=== PATIENT | male | born 1940 | race Caucasian/White ===

== ENCOUNTER → 2016-10-19 | Outpatient (CLI) | payer OTHER, MEDICARE ==
[~2016-10-19] MED LIST: ACET-1311 PO; ALFU10TA30 PO; ASPEC325 PO; ATOR-22 PO; OPTIRAY 320 IV PRN
--- NOTE | 2016-10-19 14:39 | DIAGNOSTIC IMAGING REPORT ---
CT OF THE CHEST WITH IV CONTRAST CLINICAL HISTORY: Shortness of breath. Pulmonary hypertension. COMPARISON STUDY: Chest radiograph December 21, 2011. TECHNIQUE: Following IV administration of 93 mL of Optiray-320, helical axial images of the chest were obtained. Images were viewed in the axial, sagittal and coronal planes. IV contrast was administered without complication. CT DOSE: 326.00 mGy.cm FINDINGS: No enlarged axillary, mediastinal or hilar lymph nodes are present. There is moderate dilatation of the central pulmonary arteries. The heart is moderately enlarged. There is no pericardial effusion. There is no evidence of thoracic aortic dissection. No central pulmonary embolus is identified. The remainder of the pulmonary arteries are suboptimally assessed on this examination. The central airways are patent. There is mild to moderate elevation of the right hemidiaphragm. Right lower lobe and right middle lobe opacity suggest atelectasis. Left lower lobe and lingular opacity is suggestive of atelectasis. There is no pneumothorax or pleural effusion. No suspicious osseous lesions are present. There is an old nonunited left clavicular fracture. A right renal cyst is noted. There is geographic fatty infiltration within the right hepatic lobe. A few subcentimeter hypodense hepatic lesions are too small to characterize. IMPRESSION: 1. No acute intrathoracic findings. 2. Moderate dilatation of the central pulmonary arteries suggestive of pulmonary arterial hypertension. 3. Moderate cardiomegaly. 4. Diminished lung volumes with elevation of the right hemidiaphragm. Bilateral lower lobe, right middle lobe and lingular opacities are suggestive atelectasis. No CT evidence of interstitial lung disease. 5. Fatty infiltration of the liver. Electronically signed by: Rajinder New M.D. 10/19/2016 2:36 PM Dictated Date/Time: 10/19/2016 2:28 PM
== END | disposition home or self-care (01) ==
LOC: C.CTS 13:52
PROVIDERS: ATTEND Internal Medicine Cardiovascular Disease
DX: I27.2 Other secondary pulmonary hypertension (principal); R06.02 Shortness of breath; R94.2 Abnormal results of pulmonary function studies; I51.7 Cardiomegaly; K76.0 Fatty (change of) liver, not elsewhere classified

== ENCOUNTER → 2017-10-20 | Outpatient (CLI) | payer OTHER, MEDICARE ==
[~2017-10-20] MED LIST changes: +ALFU10TA2 PO; -ALFU10TA30 PO; -OPTIRAY 320 IV PRN
[2017-10-20 11:21] LABS: BLOOD UREA NITROGEN 20 mg/dl (7-18); CREATININE 0.83 mg/dl (0.60-1.40)
== END | disposition home or self-care (01) ==
LOC: C.LAB 09:38
PROVIDERS: ATTEND Nurse Practitioner Adult Health
DX: R31.9 Hematuria, unspecified (principal)

== ENCOUNTER → 2017-10-23 | Outpatient (CLI) | payer OTHER, MEDICARE ==
[~2017-10-23] MED LIST changes: +OPTIRAY 320 IV PRN
--- NOTE | 2017-10-23 08:27 | DIAGNOSTIC IMAGING REPORT ---
CT UROGRAM CLINICAL HISTORY: Hematuria. COMPARISON STUDY: No priors. TECHNIQUE: Before and following the IV administration of 119 cc of Optiray 320, CT urogram of the abdomen and pelvis is performed from the lung bases to the proximal femora. Images are reviewed in the axial, sagittal, and coronal planes. IV contrast was administered without complication. A dose lowering technique was utilized adhering to the principles of ALARA. CT DOSE: 1513.23 mGycm FINDINGS: Lung bases: The heart is top normal in size and without pericardial effusion. The coronary arteries are densely calcified. The pulmonary trunk is dilated, measuring 4.2 cm in diameter. This suggests pulmonary artery hypertension. Segmental atelectasis is present at both lung bases. No airspace consolidation is seen typical for pneumonia and there is no pleural effusion. There is a tiny hiatal hernia. Liver: The contrast-enhanced liver is normal in size, contour, and attenuation. There is no intrahepatic biliary ductal dilatation. Scattered subcentimeter hepatic hypodensities likely represent cysts but are too small for definitive characterization. The hepatic veins and portal veins are patent. Gallbladder: Unremarkable. Spleen: Normal in size and attenuation. Pancreas: Unremarkable. Adrenal glands: Unremarkable. Kidneys and ureters: The contrast enhanced kidneys demonstrate cortical atrophy and are without hydronephrosis. There are no renal calculi identified on the unenhanced images. The kidneys enhance and excrete symmetrically. A 2.3 cm cyst is noted in the left upper pole. A subcentimeter cortical hypodensity in the lower pole of the left kidney also likely represents a cyst but is too small for definitive characterization. There is no enhancing renal cortical mass lesion identified. There is no evidence of urothelial lesion within the renal pelvis bilaterally or along the course of either ureter. Abdominal vasculature: The abdominal aorta is normal in course and caliber noting moderate atherosclerotic calcification. Bowel: The small bowel and colon are normal in course and caliber. The appendix is well-visualized and normal. Peritoneum: There is no intraperitoneal free air or abdominal ascites. There is a small fat-containing umbilical hernia. Lymphadenopathy: None. Pelvic viscera: The prostate gland is markedly enlarged and heterogeneous, measuring 6 cm in transverse diameter. There is median lobe hypertrophy. The bladder is decompressed and not well evaluated. Circumferential wall thickening an trabeculation suggests chronic bladder outlet obstruction. There is a small fat-containing left inguinal hernia. Skeletal structures: The skeletal structures are osteopenic. Mild lumbosacral spondylosis is observed. No lytic or blastic lesions are seen. There are healed left anterior rib fractures. IMPRESSION: 1. The kidneys demonstrate mild cortical atrophy and are without hydronephrosis. 2. No renal calculi are identified. There is no enhancing renal cortical mass, and no evidence of urothelial lesion involving the renal pelvis bilaterally or the ureters. 3. The prostate gland is markedly enlarged and heterogeneous. Correlation with serum PSA levels is recommended. 4. The bladder was decompressed and not well evaluated. The wall appears circumferentially thickened and trabeculated suggesting chronic outlet obstruction. If further assessment of the bladder is desired then cystoscopy would be appropriate. 5. The pulmonary trunk is dilated suggesting pulmonary artery hypertension. 6. Additional findings as above. Electronically signed by: Arian Mitchell M.D. 10/23/2017 8:26 AM Dictated Date/Time: 10/23/2017 8:15 AM
== END | disposition home or self-care (01) ==
LOC: C.CTS 07:41
PROVIDERS: ATTEND Nurse Practitioner Adult Health
DX: R31.9 Hematuria, unspecified (principal)

== ENCOUNTER → 2018-02-23 | Outpatient (CLI) | payer OTHER, MEDICARE ==
[~2018-02-23] MED LIST changes: -OPTIRAY 320 IV PRN; +REGADENOSON 0.4 MG/5 ML SYR ONE
--- NOTE | 2018-02-23 23:03 | Myocardial Perfusion Study ---
Myocardial Perfusion Study Rpt Myocardial Perfusion Study Rpt Date of Service 02/23/2018 Myocardial Perfusion Study Rpt Procedure: 1. Myocardial perfusion study performed in multiple views/images 2. Lexiscan pharmacologic stress ECG Indications: 1. Abnormal stress test Consent: Informed written consent was obtained prior to the procedure. Ordering physician: Stacey SAWYER Procedural details: For the stress portion of the study, Lexiscan 0.4 mg was intravenously administered followed by a saline flush. This was followed by 31.6 mCi of technetium 99m Cardiolite, injected at 1:12 p.m. on 02/23/2018. 30 minutes following the injection, imaging of the heart was performed in multiple projections. For the rest portion of the study, 10.4 mCi technetium 99m Cardiolite was injected intravenously at 11:30 a.m. on 02/23/2018. 1 hour following the injection, imaging of the heart was performed in the same projections. Lexiscan stress ECG: Resting ECG demonstrated: Sinus bradycardia 45 bpm Maximum heart rate: 75 bpm Resting blood pressure: 160/63 mmHg Maximum blood pressure: 160/63 mmHg Maximal, age-predicted heart rate: 51 % Significant ST changes: None Arrhythmia: None Symptoms: No chest pain reported. Findings: Rotating raw imaging demonstrated no significant lung uptake. There is no significant motion artifact. Heart size appeared normal. Myocardial perfusion demonstrated a large area of mildly reduced uptake involving the base to distal inferoseptal, base to distal inferior, and base to distal inferolateral wall segments which appeared fixed in post stress and rest imaging. There were no significant reversible defects to suggest ischemia. In the setting of normal wall motion, fixed defect likely secondary to attenuation artifact. Ejection fraction: Visually normal left ventricular systolic function, however calculated EF was 27%, which did not appear accurate. Wall motion: Normal No significant transient ischemic dilation. Impression: 1. Negative myocardial perfusion study for ischemia. 2. Fixed defect likely secondary to attenuation artifact given normal wall motion. 3. No chest pain reported. 4. Visually normal left ventricular systolic function and wall motion. 5. Nondiagnostic Lexiscan ECG.
== END | disposition home or self-care (01) ==
LOC: C.NUCL 11:03
PROVIDERS: ATTEND Nurse Practitioner Adult Health
DX: R06.00 Dyspnea, unspecified (principal); I20.0 Unstable angina; R94.39 Abnormal result of other cardiovascular function study

== ENCOUNTER → 2018-05-17 | Outpatient (CLI) | payer OTHER, MEDICARE ==
[~2018-05-17] MED LIST changes: -REGADENOSON 0.4 MG/5 ML SYR ONE
[2018-05-17 14:04] LABS: HEMATOCRIT 42.9 % (42-52); HEMOGLOBIN 13.9 g/dL (14.0-18.0); MEAN CELL VOLUME 87.6 fL (80-100); MEAN CORPUSCULAR HEMOGLOBIN 28.4 pg (25-34); MEAN CORPUSCULAR HGB CONC 32.4 g/dl (32-36); PLATELET COUNT 328 K/uL (130-400); RED CELL DISTRIBUTION WIDTH CV 13.4 % (11.5-14.5); RED CELL DISTRIBUTION WIDTH SD 42.4 fL (36.4-46.3); WHITE BLOOD COUNT 5.66 K/uL (4.8-10.8)
[2018-05-17 14:23] LABS: BLOOD UREA NITROGEN 12 mg/dl (7-18); CALCIUM 8.4 mg/dl (8.5-10.1); CARBON DIOXIDE 27 mmol/L (21-32); CREATININE 0.91 mg/dl (0.60-1.40); GLUCOSE 100 mg/dl (70-99); POTASSIUM 4.1 mmol/L (3.5-5.1); SODIUM 140 mmol/L (136-145)
[2018-05-17 14:24] LABS: PTT PATIENT 25.4 SECONDS (21.0-31.0)
== END | disposition home or self-care (01) ==
LOC: C.LABPBG 08:32
PROVIDERS: ATTEND Urology
DX: R97.20 Elevated prostate specific antigen [PSA] (principal); Z01.818 Encounter for other preprocedural examination

== ENCOUNTER → 2018-06-07 | Day surgery (SDC) | payer OTHER, MEDICARE ==
[~2018-06-07] VITALS: Ht 170.2 cm; Wt 73.0 kg
[2018-06-07] VITALS (10 sets, daily range): BP systolic 121–173; BP diastolic 47–82; PULSE 51–71; TEMP 37.2; O2SAT 95–100; Ht 170.2 cm; Wt 73.0 kg
[~2018-06-07] MED LIST changes: +ACETAMINOPHEN 325 MG TAB PO PRN; +ASPI1CHW12; +CHOL1000 PO; +CYAN100073; +DUTA0.5C PO; +FENTANYL CITRATE INJ 50 MCG/1 ML 2 ML VIAL ONE; +HEPARIN SOD (PORCINE) 1000 UNIT/ML 10 ML VIAL ONE; +MIDAZOLAM HCL 1 MG/ML 2ML VIAL ONE; +NITROGLYCERIN/D5W 100MCG/ML 20ML SYR ONE; +NiCARDipine HCL INJ 2.5 MG/ML 10 ML AMP ONE; +ONDANSETRON INJ 2 MG/ML 2 ML VIAL IV PRN; +SODIUM CHLORIDE 0.9% 1000ML 1,000 ML IV SCH; +SODIUM CHLORIDE 0.9% 1000ML 250 ML IV PRN; +TAMS0.4C38 PO
--- NOTE | 2018-06-07 07:24 | History and Physical ---
History & Physical Date of Service Jun 07, 2018. History & Physical Chief complaint: Here for transesophageal echo and cardiac catheterization as ordered by Dr. Irby, his primary line maintainer section. HPI: Mr. Heller is a pleasant 78-year-old gentleman with a history significant for mitral regurgitation, dyslipidemia, tricuspid regurgitation, restrictive lung disease, pulmonary hypertension, paroxysmal atrial fibrillation. He was referred for transesophageal ECHO cardiac catheterization for recurrent chest discomfort and dyspnea with exertion in the setting of moderate to severe mitral regurgitation which appeared worse on most recent echo. He continues to have chest discomfort which he describes as occurring both at rest and with exertion. He also has a separate dyspnea with exertion that does not necessarily occur with the chest discomfort. He denies shortness of breath at rest or orthopnea. He has not had anything to eat or drink since 7:00 p.m. on 06/06/2018. Review of systems: As above. Past medical history: 1. Mitral regurgitation 2. Tricuspid regurgitation 3. dyslipidemia 4. Restrictive lung disease 5. Pulmonary hypertension 6. Prostate surgery Social history: His has accompanied him today. Exam: Vitals are pending General: No acute distress Neck: No JVD Cardiac: Regular. Normal S1 and S2. 3/6 holosystolic murmur best heard at the apex. Lungs: Clear bilaterally. Abdomen: Nontender. Soft. Extremities: Trace bilateral lower extremity edema. No cyanosis. 2+ radial pulses bilaterally; Bryan's test okay. Labs from 05/09/2018 were reviewed: Hemoglobin 13.9; potassium 4.1; creatinine 0.91; INR 1 Echo 04/12/2018: Normal biventricular systolic function. Mild LVH. Mild biatrial dilation. Mild AI. Possible myxomatous changes of anterior mitral valve leaflet without prolapse. Moderate to severe MR. Mild to moderate TR. Severely elevated RVSP. Nuclear stress 02/23/2018: Negative for ischemia. Normal LV systolic function and wall motion. ASSESSMENT/PLAN: 1.Mitral regurgitation: Reportedly moderate to severe. Transesophageal echo as ordered by Dr. Irby. Risks and benefits were discussed with him in detail. He has given consent to undergo the procedure. 2. Pulmonary hypertension: Right heart catheterization ordered as per Dr. Irby. This will be performed when patient is ready and labs available. 3. Chest pain and dyspnea with exertion: Coronary angiography has been ordered as per Dr. Zoda to further evaluate his ongoing symptoms. Risks and benefits were discussed with him in detail. He is aware that CT surgery is not available at this facility but has given informed written consent to undergo diagnostic coronary angiography and PCI, if deemed appropriate, at this facility. 4. Disposition: Will proceed with testing as noted above.
--- NOTE | 2018-06-07 07:24 | Pre Sedation Assessment ---
Pre Sedation Assessment General Date of Sedation: Jun 07, 2018. Review Cardiovascular: regular rate, rhythm, + systolic murmur Lungs: lungs clear Pre-Sedation Airway Assessment Mallampati Classification: Class II ASA Classification: Class III NPO Status Date of Last Intake of Fluids: Jun 06, 2018 Time of Last Intake of Fluids: 19:00 Date of Last Intake of Solids: Jun 06, 2018 Time of Last Intake of Solids: 19:00 Procedure Planning Contraindications for Sedation: None Current Medications Reviewed: Yes Notes The planned sedation has been discussed with the patient. Informed Consent was obtained. I have identified the patient, determined the appropriateness of sedation and have assessed the patient immediately prior to the procedure. All medicine(s) and interventions are by my order.
--- NOTE | 2018-06-07 08:32 | Post Sedation Assessment ---
Post Sedation Assessment General Date of Sedation Jun 07, 2018. Vital Signs: Vital Signs Past 12 Hours Date Time Temp Pulse Resp B/P (MAP) Pulse Ox O2 Delivery O2 Flow Rate FiO2 06/07/18 08:20 67 16 140/70 95 Room Air 06/07/18 08:15 70 16 145/63 98 Room Air 06/07/18 08:10 65 16 134/67 99 Room Air 06/07/18 08:05 51 16 121/47 98 Room Air 06/07/18 08:00 57 16 126/57 98 Room Air 06/07/18 07:55 69 16 141/65 100 Room Air 06/07/18 07:50 57 18 145/54 98 Room Air 06/07/18 07:47 57 18 159/74 98 Room Air 06/07/18 07:11 37.2 71 18 159/82 (107) 96 Room Air Post Procedure Recovery Score Activity: (2) Moves 4 extremities * Respiration: (2) Deep breath/cough Circulation: (2) +/-20% PreAnes Value Consciousness: (2) Fully Awake Oxygen Saturation: (2) > 92% On Room Air Post Anesthesia Score: 10 Discharge Sedation Level of Care: Fast Track Phase II Post Sedation Plan On clinical assessment, the patient appears to have tolerated the sedation without complications. Patient is recovering as anticipated. Patient will continue to be monitored by nursing and may be discharged when sedation discharge criteria are met per below protocol. Upon Completions of procedure and additional 15 minutes continue every 5 minute vital signs and the P.A.R. score; then discharge to a Phase I or Fast Track to Phase II per the following guidelines: * Discharge Patient to appropriate Phase II area if PAR is 8 or greater or return to pre- procedure baseline. The post - procedure orders will be as directed. * If PAR score is less than 8 or not return to pre-procedure baseline then patient will follow Phase I monitoring till PAR is reached for Phase II. The Phase I may be done in procedure room or may call to secure a Phase I area. * If naloxone or flumazenil are used for reversal, hold in Phase I for an additional 60 -120 minutes before discharge to Phase II. Please call the Sedation Physician to re-evaluate and complete post-note for discharge to Phase II area. Do NOT discharge from procedure sedation or Phase 1 until post- sedation evaluation note is complete by procedure /sedation MD Sedation Discharge Instructions to be given to the patient at discharge to home.
--- NOTE | 2018-06-07 08:34 | Cardiology Procedure Brief Nt ---
Preliminary Cardiology Note Procedure Date Jun 07, 2018. Pre-Procedure Diagnosis Mitral regurgitation Post-Procedure Diagnosis same Procedure(s) Performed ASHLIE Sr. Vendor Management Associate Carissa Fruit [employer] Nut Farm Worker(s) Lisa Estimated Blood Loss none Preliminary Findings Normal LV systolic function. Mitral valve prolapse with probable moderate to severe regurgitation. Recommendations Proceed to cardia cath as per Dr. Irby. Specimens none Complication(s) None Disposition labor relations officer holding area
--- NOTE | 2018-06-07 08:35 | Pre Sedation Assessment ---
Pre Sedation Assessment General Date of Sedation: Jun 07, 2018. Vital Signs Past 12 Hours Date Time Temp Pulse Resp B/P (MAP) Pulse Ox O2 Delivery O2 Flow Rate FiO2 06/07/18 08:20 67 16 140/70 95 Room Air 06/07/18 08:15 70 16 145/63 98 Room Air 06/07/18 08:10 65 16 134/67 99 Room Air 06/07/18 08:05 51 16 121/47 98 Room Air 06/07/18 08:00 57 16 126/57 98 Room Air 06/07/18 07:55 69 16 141/65 100 Room Air 06/07/18 07:50 57 18 145/54 98 Room Air 06/07/18 07:47 57 18 159/74 98 Room Air 06/07/18 07:11 37.2 71 18 159/82 (107) 96 Room Air Review Cardiovascular: regular rate, rhythm, + systolic murmur Lungs: lungs clear Pre-Sedation Airway Assessment Smoking Status: Never Smoker Hx of Sleep Apnea: Yes Short Thick Neck: No Thyro-mental Distance: > 3 Finger Breadths Oral Cavity: Capped Teeth Mallampati Classification: Class II ASA Classification: Class III NPO Status Date of Last Intake of Fluids: Jun 06, 2018 Time of Last Intake of Fluids: 19:00 Date of Last Intake of Solids: Jun 06, 2018 Time of Last Intake of Solids: 19:00 Procedure Planning Contraindications for Sedation: None Current Medications Reviewed: Yes Notes The planned sedation has been discussed with the patient. Informed Consent was obtained. I have identified the patient, determined the appropriateness of sedation and have assessed the patient immediately prior to the procedure. All medicine(s) and interventions are by my order.
--- NOTE | 2018-06-07 11:12 | Cardiac Catheterization ---
Procedure Note Procedure Date Jun 07, 2018. Pre-Procedure Diagnosis Valvular Disease AUC Score 7 Post-Procedure Diagnosis Mild CAD, Elevated Intracardiac Pressures Procedure(s) Performed Coronary Angiography, Left Heart Cath, Right Heart Cath Emd Teacher Dr. Ferrer Director Immunology(s) Cota Estimated Blood Loss < 30 ml Medication(s) Fentanyl, Heparin, Nicardipine, Versed, Lidocaine 1% Summary of Findings Coronary angiography: 1. Left main coronary artery: LMCA is without significant CAD. 2. Left anterior descending: The LAD is a large caliber vessel that wraps around the apex. Proximal to mid LAD had mild calcifications and mild luminal irregularities. D1 and D2 without significant CAD. Remainder of LAD without significant CAD. 3. Circumflex: The circumflex is a large caliber vessel. Codominant circumflex. No significant CAD within the circumflex, OM1, posterior lateral branches, or circumflex PDA. 4. Right coronary artery: The RCA is large and codominant. No significant CAD within the RCA or RCA PDA. 5. Ramus intermedius: There is a very small caliber ramus without significant CAD. Left heart catheterization: 1. Left ventriculography was performed in the RUIZ position. 2. Left ventricular systolic function was normal. Estimated EF was 65-70%. 3. Normal wall motion in the RUIZ projection. 4. 3+ mitral regurgitation. 5. Dilated left atrium. 6. Normal LVEDP; 12mmHg. 7. No aortic stenosis. Right heart catheterization: 1. Mildly elevated pulmonary capillary wedge pressure. A-wave 23; prominent V- wave 30; mean 17mmHg. 2. PA pressure 48/16, with a mean of 27mmHg. 3. Right ventricular pressure 47/5 with EDP of 10mmHg. 4. Right atrial pressure A-wave 10; V-wave 7; mean 6mmHg. 5. Cardiac output via thermodilution 4.2 L/min, with a cardiac index of 2.3 L/ min/m2. 6. PVR 2.38 Wood units. Sedation start time 8:55 a.m. Sedation end time 9:30 a.m. Procedural details: 1. Coronary angiography and left heart catheterization was performed via the right radial artery without known complication. 2. Right heart catheterization was performed via the left brachiocephalic vein. Impression: 1. Luminal irregularities within the proximal to mid LAD. No obstructive CAD. 2. Mitral regurgitation 3+. 3. No aortic stenosis. 4. Moderate pulmonary hypertension. 5. Mildly elevated pulmonary capillary wedge pressure with ruiz V waves. 6. Normal LVEDP. Hemodynamics Rest Ao: 129/52 Final Ao: 119/58 LV: 130/2/12 Recommendations management recommendations (Follow up with Dr. Irby to discuss treatment options.) Specimens Radiation Exposure (mGy) 1356 mGy. Fluoro time 5.7 min Contrast (mls) 72 ml Optiray Procedural Complication(s) None Disposition Glycerin Supervisor Holding/Recovery ACC Data Cardiac Status Clinical evaluation leading to the procedure CAD Presntation: Sx unlikely to be ischemic Anginal Classification: No symptoms (atypical chest pain at anytime) Heart Failure: No Cardiogenic Shock w/in 24Hrs: No Cardiac Arrest w/in 24Hrs: No Imaging studies past 6 months: Yes (echo) Stress studies past 6 months: Yes Standard Exercise Stress Test: No Stress Echocardiogram: No Stress Testing w/SPECT MPI: Yes - Negative Cardiac CTA: No Coronary Anatomy Dominant: Co-dominant Left Main (% Stenosis): Normal LAD (% Stenosis): Proximal (Proximal to mid luminal irregularities.) D1 (% Stenosis): Normal D2 (% Stenosis): Normal Circumflex (% Stenosis): Normal OM1 (% Stenosis): Normal L PL1 (% Stenosis): Normal L PL2 (% Stenosis): Normal RCA (% Stenosis): Normal R PDA (% Stenosis): Normal Ramus (% Stenosis): Normal Left Ventricular Angiography EF (%): 65-70% Wall Motion: Inferior (Normal), Apical (Normal), Anterior (Normal) Mitral Regurgitation: 3+ Diagnostic Physician's Name: Shaq Ferrer MD Status: Elective Closure Device Percutaneous Entry Location: Radial Closure Device: Radial Band Recommendations: management recommendations (Follow up with Dr. Irby to discuss your treatment options.)
--- NOTE | 2018-06-07 11:19 | Discharge Instructions ---
Discharge Instructions Date of Service Jun 07, 2018. Visit Reason for Visit: Cardiac catheterization and transesophageal echo for mitral regurgitation. Discharge Discharge Diagnosis / Problem: Mitral valve prolapse with regurgitation. Pulmonary hypertension. Discharge Goals Goal(s): Diagnostic testing, Therapeutic intervention Activity Recommendations Activity Limitations: per Instructions/Follow-up section Anesthesia . Post Anesthesia Instructions: If you have had General Anesthesia or IV Sedation: * Do not drive today. * Resume driving when surgeon permits. * Do not make important decisions or sign legal documents today. * Call surgeon for: 1. Temperature elevations greater than 101 degrees F. 2. Uncontrollable pain. 3. Excessive bleeding. 4. Persistent nausea and vomiting. 5. Medication intolerance (nausea, vomiting or rash). * For nausea and vomiting use only clear liquids such as: tea, soda, bouillon until nausea subsides, then gradually increase diet as tolerated. * If you have any concerns or questions, call your surgeon's office. If physician is unavailable and it is an emergency, call 911 or go to the nearest emergency room. . Instructions / Follow-Up Instructions / Follow-Up ACTIVITY RECOMMENDATIONS: Excess manipulation of the wrist should be avoided for the next 24-48 hours. * No lifting over 2 pounds (approximately a 1/2 gallon of milk) with the utilized arm for 24 hours. * No strenuous activity such as bowling or tennis for 3 days. * Keep the site of the procedure covered with a bandage for 24 hours. *You may shower the day after the procedure. Do not take a tub bath or submerge the puncture site in water for the next 3 days. *Do not operate any motorized equipment for 3 days. SPECIAL CARE INSTRUCTIONS: The site may be slightly bruised and sore following your procedure. Should any of the following occur, contact the Dr. who performed your procedure. 1. Redness/inflammation, swelling, chills, or fever, or colored drainage at procedure site within 3-7 days after your procedure. 2. Coldness, discoloration, ongoing numbness, severe pain, or swelling. Expect mild tingling of hand and tenderness at the puncture site for up to three days. If this persists beyond three days, or other symptoms develop, notify the Dr. who performed your procedure. BLEEDING: If the procedure site on your wrist begins to bleed, do not panic 1. Place 1 or 2 fingers firmly just slightly above the insertion site to stop the bleeding. You may be able to feel your pulse as you hold pressure. 2. Lift your finger after 5 minutes to see if the bleeding has stopped. 3. Once the bleeding has stopped, gently wipe the wrist area clean with a bandage. * If the bleeding from your wrist does not stop after 10 minutes, or if there is a large amount of bleeding or spurting, call 911 ([address] drive yourself to the hospital). SKIN IRRITATION: * You may experience some redness and/or swelling in the area where radiation was administered. If any skin irritation occurs, please contact your family physician. FOLLOW UP VISIT: Keep any scheduled doctor appointments. ACTIVITY RECOMMENDATIONS: Resume activities as tolerated with no limitations unless specified. __ Nothing to eat or drink until gag reflex returns. __ No HOT or WARM liquids for _8_ hours. __ Avoid "scratchy" foods such as potato chips or pretzels for 24 hours following procedure. SPECIAL CARE: If you experience coughing up or vomiting of blood, contact ___[phone] Diet Recommendations Recommended Home Diet: low sodium Procedures Procedures Performed: 1. Transesophageal ECHO 2. Coronary angiography 3. Left heart catheterization 4. Right heart catheterization 5. Moderate sedation Pending Studies Studies pending at discharge: no Medical Emergencies . Who to Call and When: Medical Emergencies: If at any time you feel your situation is an emergency, please call 911 immediately. . Non-Emergent Contact Non-Emergency issues call your: Mamma Logist . . "Provider Documentation" section prepared by Shaq Guerin. .
--- NOTE | 2018-06-07 11:19 | Post Sedation Assessment ---
Post Sedation Assessment General Date of Sedation Jun 07, 2018. Vital Signs: Vital Signs Past 12 Hours Date Time Temp Pulse Resp B/P (MAP) Pulse Ox O2 Delivery O2 Flow Rate FiO2 06/07/18 11:15 56 16 206/57 (106) 94 Room Air 06/07/18 11:00 62 16 208/68 (114) 94 Room Air 06/07/18 10:45 61 16 172/57 (95) 94 Room Air 06/07/18 10:30 56 16 178/58 (98) 95 Room Air 06/07/18 10:15 73 16 201/93 (129) 96 Room Air 06/07/18 09:55 66 16 179/64 (102) 94 Room Air 06/07/18 09:38 61 16 155/72 (99) 96 Room Air 06/07/18 08:20 67 16 140/70 95 Room Air 06/07/18 08:15 70 16 145/63 98 Room Air 06/07/18 08:10 65 16 134/67 99 Room Air 06/07/18 08:05 51 16 121/47 98 Room Air 06/07/18 08:00 57 16 126/57 98 Room Air 06/07/18 07:55 69 16 141/65 100 Room Air 06/07/18 07:50 57 18 145/54 98 Room Air 06/07/18 07:47 57 18 159/74 98 Room Air 06/07/18 07:11 37.2 71 18 159/82 (107) 96 Room Air Post Procedure Recovery Score Activity: (2) Moves 4 extremities * Respiration: (2) Deep breath/cough Circulation: (2) +/-20% PreAnes Value Consciousness: (2) Fully Awake Oxygen Saturation: (2) > 92% On Room Air Post Anesthesia Score: 10 Discharge Sedation Level of Care: Fast Track Phase II Post Sedation Plan On clinical assessment, the patient appears to have tolerated the sedation without complications. Patient is recovering as anticipated. Patient will continue to be monitored by nursing and may be discharged when sedation discharge criteria are met per below protocol. Upon Completions of procedure and additional 15 minutes continue every 5 minute vital signs and the P.A.R. score; then discharge to a Phase I or Fast Track to Phase II per the following guidelines: * Discharge Patient to appropriate Phase II area if PAR is 8 or greater or return to pre- procedure baseline. The post - procedure orders will be as directed. * If PAR score is less than 8 or not return to pre-procedure baseline then patient will follow Phase I monitoring till PAR is reached for Phase II. The Phase I may be done in procedure room or may call to secure a Phase I area. * If naloxone or flumazenil are used for reversal, hold in Phase I for an additional 60 -120 minutes before discharge to Phase II. Please call the Sedation Physician to re-evaluate and complete post-note for discharge to Phase II area. Do NOT discharge from procedure sedation or Phase 1 until post- sedation evaluation note is complete by procedure /sedation MD Sedation Discharge Instructions to be given to the patient at discharge to home.
--- NOTE | 2018-06-07 15:32 | TEE ---
*NOTICE TO RECEIVING DEMOCRAT AGENCY This information is strictly Confidential and protected under [place] law. [place] law prohibits you from making any further disclosure of this information unless further disclosure is expressly permitted by the written consent of the person to whom it pertains or is authorized by law. A general authorization for the release of medical or other information is not sufficient for this purpose. Hospital accepts no responsibility if the information is made available to any other person, INCLUDING THE PATIENT. Interpretation Summary * Name: CHANTALE TINAJERO Study Date: 06/07/2018 07:36 AM BP: 159/82 mmHg * Patient Location: [facility] HR: 70 * : 1940 (M/d/yyyy) Gender: Male Height: 67 in * Age: 78 yrs Ethnicity: [place] * Ordering Physician: Frankie Irby MD, [facility] * Performed By: Josephine Gonzalez RDCS * * Reason For Study: MITRAL REGURGITATION * -- Conclusions -- * ASHLIE: * 1. Mildly dilated left ventricle with normal systolic function. EF 65-70%. No regional wall motion abnormalities. No significant left ventricular hypertrophy. * 2. The left atrium is severely dilated. * 3. Mitral valve prolapse with eccentric, probable moderate to severe regurgitation. Prolapsing segment appears to be P1). * 4. Mild aortic regurgitation. * 5. PFO with left to right shunt. * 6. Patient tolerated procedure well without known complication. Procedure Details * The transesophageal portion of this study was personally supervised by the undersigned interpreting physician. * ASHLIE Probe #2 utilized for procedure. * The study was performed in Cardiac Catheterization Lab. * Time out was conducted by the physician, nurse, and automotive engineering technician with positive identification of patient and procedure. * Informed consent for Transesophageal Echocardiogram was obtained prior to the procedure. * An intravenous line was placed. A topical anesthetic agent was used for oropharangeal anesthesia. A bite block was inserted. * The patient's vital signs, including blood pressure, heart rate, pulse oximetry and cardiac rhythm were monitored throughout the procedure . * Fentanyl 70 mcg was administered for procedural sedation. * Midazolam 3 mg administered for sedation. * The posterior oropharynx was anesthetized using a topical anesthetic spray. A bite guard was inserted. * A multifrequency, multiplane transesopheageal echocardiographic endoscope was inserted and manipulated in the standard fashion to achieve multiplane views. * The transesophageal probe was passed without difficulty. * The usual views were obtained; basal, mid-esophageal, transgastric and aortic views. * The patient tolerated the procedure well without evidence of orophangeal or esophageal trauma. * A 2D transesophageal echocardiogram with spectral and color flow Doppler was performed. * Contrast injection with agitated saline was performed. * Start time for the exam was 7:49am, probe was inserted at 7:50am. Probe was taken out at 8:17am and exam end time was 8:23am. Sedation start time: 7:52 a.m. Sedation end time: 8:20 a.m. Left Ventricle * Mildly dilated left ventricle with normal systolic function. EF 65-70%. No regional wall motion abnormalities. No significant left ventricular hypertrophy. Right Ventricle * The right ventricle is normal in size and function. Atria * The left atrium is severely dilated. * No thrombus is detected in the left atrial appendage. * Right atrial size is normal. * PFO with left to right shunt. Mitral Valve * Mitral valve prolapse with eccentric, probable moderate to severe regurgitation. Prolapsing segment appears to be P1). * There is no mitral valve stenosis. Tricuspid Valve * The tricuspid valve is not well visualized, but is grossly normal. * There is no tricuspid stenosis. * There is trace tricuspid regurgitation. Aortic Valve * The aortic valve is trileaflet. * The aortic valve opens well. * Mild aortic regurgitation. Pulmonic Valve * The pulmonic valve is not well seen, but is grossly normal. * Trace pulmonic valvular regurgitation. Great Vessels * The aortic root is normal size. * Ascending aorta of normal dimension * Moderate atherosclerotic plaque within the descending thoracic aorta. * Blunted pulmonary venous flow pattern. Pericardium * There is no pericardial effusion. MMode 2D Measurements and Calculations LVIDd 5.3 cm LVIDs 3.2 cm FS 38.9 % EDV(Teich) 135.7 ml ESV(Teich) 42.3 ml EF(Teich) 68.8 % EDV(cubed) 149.4 ml ESV(cubed) 34.1 ml EF(cubed) 77.2 % SV(Teich) 93.4 ml SV(cubed) 115.3 ml Ao root diam 3.3 cm Ao root area 8.5 cm\S\2 asc Aorta Diam 3.3 cm Doppler Measurements and Calculations MV E max aris 73.5 cm/sec MV A max aris 47.4 cm/sec MV E/A 1.5 MV dec time 0.19 sec MR max aris 587.3 cm/sec MR max PG 138.0 mmHg
== END | disposition home or self-care (01) ==
LOC: C.CATH 06:59
PROVIDERS: ATTEND Internal Medicine Cardiovascular Disease
DX: I25.10 Atherosclerotic heart disease of native coronary artery without angina pectoris (principal); I34.0 Nonrheumatic mitral (valve) insufficiency; E78.5 Hyperlipidemia, unspecified; I27.20 Pulmonary hypertension, unspecified; I48.0 Paroxysmal atrial fibrillation